=== PATIENT | female | born 1970 | race Caucasian/White ===

== ENCOUNTER → 2016-03-20 | Outpatient (CLI) | payer OTHER ==
--- NOTE | 2016-03-21 08:22 | MM ---
Reason for exam: screening (asymptomatic). Physical Findings: A clinical breast exam by your physician is recommended on an annual basis and results should be correlated with mammographic findings. MG Screening Mammo w CAD Bilateral CC and MLO view(s) were taken. No prior studies available for comparison. The breast tissue is heterogeneously dense. This may lower the sensitivity of mammography. There is no discrete abnormality. ASSESSMENT: Negative, BI-RAD 1 RECOMMENDATION: Routine screening mammogram of both breasts in 1 year.
== END | disposition home or self-care (01) ==
LOC: RADMAMWWP 03-09 08:12
PROVIDERS: ATTEND Family Medicine
DX: Z12.31 Encounter for screening mammogram for malignant neoplasm of breast (principal)

== ENCOUNTER → 2018-09-11 | Outpatient (CLI) | payer BC ==
--- NOTE | 2018-09-12 13:53 | MM ---
Reason for exam: screening (asymptomatic). Last mammogram was performed 2 years and 6 months ago. Physical Findings: A clinical breast exam by your physician is recommended on an annual basis and results should be correlated with mammographic findings. MG Screening Mammo w CAD Bilateral CC and MLO view(s) were taken. Prior study comparison: March 20, 2016, bilateral MG screening mammo w CAD. The breast tissue is heterogeneously dense. This may lower the sensitivity of mammography. No suspicious abnormality. No significant changes when compared with prior studies. ASSESSMENT: Negative, BI-RAD 1 RECOMMENDATION: Routine screening mammogram of both breasts in 1 year.
== END | disposition home or self-care (01) ==
LOC: RADMAMWWP 09:49
PROVIDERS: ATTEND Family Medicine
DX: Z12.31 Encounter for screening mammogram for malignant neoplasm of breast (principal)
CPT/HCPCS: 77067

== ENCOUNTER → 2018-09-30 | Outpatient (CLI) | payer BC ==
[2018-09-30 12:05] LABS: Anisocytosis Slight; Basophils % (A) 0 %; Eosinophils % (A) 0 %; HCT 30.6 % (34.0-46.0); HGB 9.3 gm/dL (11.4-16.0); Hypochromasia Marked; Lymphocytes # (A) 1.3 k/uL (1.0-4.8); Lymphocytes % (A) 28 %; MCH 20.3 pg (25.0-35.0); MCHC 30.4 g/dL (31.0-37.0); MCV 66.8 fL (80.0-100.0); Mean Platelet Volume 8.8; Microcytosis Marked; Monocytes # (A) 0.4 k/uL (0-1.0); Monocytes % (A) 8 %; Neutrophils # (A) 2.8 k/uL (1.3-7.7); Neutrophils % (A) 61 %; Platelet Count 226 k/uL (150-450); RBC 4.58 m/uL (3.80-5.40); RDW 16.6 % (11.5-15.5); WBC 4.6 k/uL (3.8-10.6)
== END | disposition home or self-care (01) ==
LOC: LABPAT 11:23
PROVIDERS: ATTEND Obstetrics & Gynecology Obstetrics
DX: Z01.812 Encounter for preprocedural laboratory examination (principal)
CPT/HCPCS: 36415; 85025

== ENCOUNTER 2018-10-22 06:22 | Day surgery (SDC) | payer BC ==
[2018-10-17 09:49] VITALS: BMI 30.4
--- NOTE | 2018-10-21 13:44 | P.HPOB ---
History of Present Illness H&P Date: 10/21/18 Chief Complaint: menorrhagia, uterine fibroids This is a 48yo that presents with c/o HMB. she states her menses have been worsening over the last 2 years and specifically the last 6 months. menses are regualr lasting 7-10 days, positive clots with her menses. she flows heavy for about 4 days of her menses. she did have a pelvic ultrasound revealing 5 small fibroids largest measuring 2 cm, uterus was slightly enlarged at 10 cm. Review of Systems Constitutional: Reports fatigue, Denies chills, Denies fever Ears, nose, mouth and throat: Denies headache Cardiovascular: Denies edema Respiratory: Denies dyspnea Gastrointestinal: Denies constipation, Denies diarrhea, Denies nausea, Denies vomiting Genitourinary: Reports menorrhagia Menstruation: Reports period heavy Past Medical History Additional Past Medical History / Comment(s): IRREGULAR HEAVY MENSES. SEASONAL ALLERGIES History of Any Multi-Drug Resistant Organisms: None Reported Additional Past Surgical History / Comment(s): D & C Past Anesthesia/Blood Transfusion Reactions: Postoperative Nausea & Vomiting (PONV) Smoking Status: Former smoker - Past Family History Mother Family Medical History: Deep Vein Thrombosis (DVT) Medications and Allergies Home Medications Medication Instructions Recorded Confirmed Type Desvenlafaxine Succinate [Pristiq] 50 mg PO DAILY 10/17/18 10/17/18 History Loratadine [Claritin] 10 mg PO DAILY 10/17/18 10/17/18 History Meloxicam [Mobic] 7.5 mg PO DAILY 10/17/18 10/17/18 History Montelukast [Singulair] 10 mg PO DAILY 10/17/18 10/17/18 History Allergies Allergy/AdvReac Type Severity Reaction Status Date / Time Penicillins Allergy Rash/Hives Verified 10/17/18 09:38 Exam Osteopathic Statement: *. No significant issues noted on an osteopathic structural exam other than those noted in the History and Physical/Consult. in general this is a well nourished well developed female in NAD< heart has a RRR, lungs CTA b/l. - OBG Physical Exam Abdomen: bowel sounds normal Vagina: no discharge Cervix: no lesion, no friable Uterus: enlarged, normal contour Adnexa: both: normal Anus/Rectum: normal perianal skin Assessment and Plan (1) Menorrhagia Status: Acute Code(s): N92.0 - EXCESSIVE AND FREQUENT MENSTRUATION WITH REGULAR CYCLE SNOMED Code(s): 394757142 (2) Uterine fibroid Status: Acute Code(s): D25.9 - LEIOMYOMA OF UTERUS, UNSPECIFIED SNOMED Code(s): 03304679 Plan: Plan H DC EA, procedure reviewed and all questions answered. failure of procedure reviewed and all questions answered.
[~2018-10-22 06:22] MED LIST: DEXAMETHASONE SOD PHOSPHATE 10 MG/ML 1 ML VIAL IV ONE; HYDROmorphone 0.5 MG/0.5 ML SYRINGE IVP PRN; LACTATED RINGERS 1,000 ML IV SCH; LIDOCAINE 1% 20 ML VIAL (10MG/ML) FOR IV START INTRADERMA PRN; ONDANSETRON 4 MG/2 ML VIAL IVP ONE; Pre Op ABX Message 1 EACH MISC MISCELLANE ONE; SCOPOLAMINE 1.5MG/72HR PATCH TRANSDERM ONE
[2018-10-22] MEDS ORDERED: MIDAZOLAM (PF) 2 MG/2 ML VIAL IVP ONE (06:55)
[2018-10-22] MEDS ORDERED: fentaNYL (PF) 50 MCG/ML 2 ML AMP ONE (07:37)
[2018-10-22] MEDS ORDERED: GLYCOPYRROLATE 0.2 MG/ML 2 ML VIAL ONE (07:37)
[2018-10-22] MEDS ORDERED: SUCCINYLCHOLINE CHLORIDE 100 MG/5 ML SYR IV ONE (07:37)
[2018-10-22] MEDS ORDERED: PROPOFOL 10 MG/ML 20 ML VIAL IV ONE (07:37)
[2018-10-22] MEDS ORDERED: LIDOCAINE 1% INJ 10MG/ML (20 ML MDV) ONE (07:37)
[2018-10-22] MEDS ORDERED: KETOROLAC 30 MG/ML 1 ML VIAL ONE (07:37)
--- NOTE | 2018-10-22 08:11 | P.OP ---
Date of Procedure: 10/22/18 Preoperative Diagnosis: Menorrhagia, uterine fibroids Postoperative Diagnosis: Same Procedure(s) Performed: Hysteroscopy, dilation and curettage, endometrial ablation with NovaSure Anesthesia: HARDIK Surgeon: Cristel Amaral Estimated Blood Loss (ml): 5 IV fluids (ml): 400 Urine output (ml): 50 Pathology: other (Endometrial curettings) Condition: stable Disposition: PACU Indications for Procedure: Heavy menstrual bleeding Operative Findings: Normal appearing proliferative endometrial cavity Description of Procedure: Patient seen in the preoperative area and informed consent is obtained. Risks are reviewed once again all questions are answered. Patient was taken back to the operating suite where general anesthesia was obtained without difficulty by the anesthesia department. She was then prepped and draped in normal sterile fashion in the dorsal lithotomy position. A red rubber catheter was used to drain the bladder of clear yellow urine. Weighted speculum was placed in the posterior vaginal vault the anterior lip of the cervix is visualized and grasped with a single-tooth tenaculum. The endocervical canal was then dilated and hysteroscope was placed through the cervix and toward the endometrial cavity. A proliferative cavity was noted, pictures were taken and the hysteroscope was removed. A sharp curettage was then performed and the specimen specimen was then sent to pathology for analysis. The NovaSure device was then opened and set the appropriate measurements for the patient's cavity 4 cm in length and 3.7 in width. Power of 81 was given after cavity assessment was completed the cycle was allowed to complete for 79 seconds. Afterwards the device was removed without difficulty. The single-tooth tenaculum was taken off of the anterior li p of the cervix hemostasis was appreciated. All counts were correct 2 patient tolerated procedure well and was taken the recovery room awake in stable condition.
[2018-10-22 08:28] VITALS: TEMP 97
[2018-10-22 08:34] VITALS: RESP 16
[2018-10-22] MEDS ORDERED: ACETAMINOPHEN TAB 325 MG TAB PO ONE (09:39)
[2018-10-22 09:48] VITALS: BP 122/70; PULSE 77
== END 2018-10-22 10:55 | disposition home or self-care (01) ==
LOC: OR 06:22
PROVIDERS: ATTEND Obstetrics & Gynecology Obstetrics
DX: N92.0 Excessive and frequent menstruation with regular cycle (principal); D25.9 Leiomyoma of uterus, unspecified; N85.00 Endometrial hyperplasia, unspecified; Z88.0 Allergy status to penicillin; J45.909 Unspecified asthma, uncomplicated; Z79.51 Long term (current) use of inhaled steroids; Z79.899 Other long term (current) drug therapy; K21.9 Gastro-esophageal reflux disease without esophagitis; Z87.891 Personal history of nicotine dependence; Z84.89 Family history of other specified conditions; Z79.1 Long term (current) use of non-steroidal anti-inflammatories (NSAID)
CPT/HCPCS: 81025; 88305; 58563; J1100; J2405; J2001; J3010; J1885; J0330; J2704; J2250

== ENCOUNTER 2021-06-08 15:13 | Emergency (ER) | payer BC ==
[2021-06-08 16:13] VITALS: BP 139/72; PULSE 64; RESP 18; TEMP 98.4
--- NOTE | 2021-06-08 16:36 | ED ---
General Adult HPI - General Chief complaint: Fall Stated complaint: Fall Hit Left side of Face Time Seen by Provider: 06/08/21 16:21 Source: patient Mode of arrival: ambulatory Limitations: no limitations - History of Present Illness Initial comments: Dictation was produced using [employer] dictation software. please excuse any grammatical, word or spelling errors. Chief Complaint: 51-year-old female presents emergency Department with head injury History of Present Illness: Is 51-year-old female she tripped opening her gait at around 2:30 PM today. She fell to the ground and did on her left side and hit her head on the ground. She states that she was a little dazed but denies losing consciousness. After the fall she had a slight headache however after the next several minutes her symptoms improved until 1 hour prior to arrival her symptoms started to come back. She felt a little dizzy and nauseated while in the waiting room however since she's been placed in hallway bed #10 she's been feeling slightly better. Patient denies any double vision. The ROS documented in this emergency department record has been reviewed and confirmed by me. Those systems with pertinent positive or negative responses have been documented in the HPI. All other systems are other negative and/or noncontributory. PHYSICAL EXAM: General Impression: Alert and oriented x3, not in acute distress HEENT: Ecchymoses over the lateral superior left orbit, extra-ocular movements intact, pupils equal and reactive to light bilaterally, mucous membranes moist. Cardiovascular: Heart regular rate and rhythm Chest: Able to complete full sentences, no retractions, no tachypnea Abdomen: abdomen soft, non-tender, non-distended, no organomegaly Musculoskeletal: Pulses present and equal in all extremities, no peripheral edema Motor: no focal deficits noted Neurological: CN II-XII grossly intact, no focal motor or sensory deficits noted Skin: Abrasion over the left anterior knee Psych: Normal affect and mood ED course: 60-year-old female presents after head injury. Vital signs upon arrival are within acceptable limits. Computed tomography scan of the brain and face shows fluid levels in the maxillary sinus consistent with sinusitis but no fracture. Sinusitis seems to be minimal and bilateral, not likely an indirect sign of orbital fracture. Patient was or the emergency department for approximately 2 hours and 40 minutes. She is reevaluated bedside 5:55 PM found to be stable medical condition. Patient be discharged. She is told that her symptoms may reflect a mild concussion. She is told to avoid any extremes activity to follow-up with her primary care doctor. - Related Data Home Medications Medication Instructions Recorded Confirmed Loratadine [Claritin] 10 mg PO HS 10/17/18 06/08/21 Montelukast [Singulair] 10 mg PO HS 10/17/18 06/08/21 Meloxicam [Mobic] 15 mg PO DAILY PRN 06/08/21 06/08/21 Venlafaxine HCl ER [Effexor Xr] 37.5 mg PO HS 06/08/21 06/08/21 Allergies Allergy/AdvReac Type Severity Reaction Status Date / Time Penicillins Allergy Rash/Hives Verified 06/08/21 17:42 on entire body Review of Systems ROS Statement: Those systems with pertinent positive or pertinent negative responses have been documented in the HPI. ROS Other: All systems not noted in ROS Statement are negative. Past Medical History Past Medical History: Asthma History of Any Multi-Drug Resistant Organisms: None Reported Past Psychological History: Depression Smoking Status: Never smoker Past Alcohol Use History: Rare Past Drug Use History: None Reported General Exam Limitations: no limitations Course Vital Signs 06/08/21 16:08 Temperature 98.4 F Pulse Rate 64 Respiratory 18 Rate Blood Pressure 139/72 O2 Sat by Pulse 97 Oximetry Disposition Clinical Impression: Facial contusion Disposition: HOME SELF-CARE Condition: Good Instructions (If sedation given, give patient instructions): Fall Prevention for Older Adults (ED) Is patient prescribed a controlled substance at d/c from ED?: No Referrals: Gamal Rose MD [Primary Care Provider] - 1-2 days
--- NOTE | 2021-06-08 17:41 | CT ---
EXAMINATION TYPE: CT brain wo con DATE OF EXAM: 06/08/2021 COMPARISON: None HISTORY: Fall, left periorbital swelling. CT DLP: 721.5 mGycm Automated exposure control for dose reduction was used. Images obtained of the brain without contrast. Ventricles have normal size. There is no mass effect or midline shift. There is no sign of intracrani al hemorrhage. There is mucosal thickening and fluid levels in the maxillary sinuses. IMPRESSION: Maxillary sinusitis with fluid levels. No acute intracranial abnormality.
--- NOTE | 2021-06-08 17:44 | CT ---
EXAMINATION TYPE: CT facial bones wo con DATE OF EXAM: 06/08/2021 COMPARISON: None HISTORY: Fall, left periorbital swelling. CT DLP: 721.5 mGycm Automated exposure control for dose reduction was used. Images of the facial bones obtained from the bottom of the mandible to the top of the frontal sinuses with no contrast. The mandibular ring is intact. Temporomandibular joints are intact. Zygomatic arches appear normal. T he maxilla is intact. There is fluid levels in the maxillary sinuses. Nasal bone is intact. Orbital m argins are intact no evidence of orbital blowout fracture. No retro-orbital mass. There is mild soft tissue swelling lateral to the left orbit. IMPRESSION: Mild left lateral periorbital soft tissue swelling. No fracture. Fluid levels in the maxillary sinuse s consistent with sinusitis. No fracture.
== END 2021-06-08 18:15 | disposition home or self-care (01) ==
LOC: EC 15:13
DX: S00.12XA Contusion of left eyelid and periocular area, initial encounter (principal); S80.212A Abrasion, left knee, initial encounter; J45.909 Unspecified asthma, uncomplicated; Z88.0 Allergy status to penicillin; W01.198A Fall on same level from slipping, tripping and stumbling with subsequent striking against other object, initial encounter; Y92.009 Unspecified place in unspecified non-institutional (private) residence as the place of occurrence of the external cause
CPT/HCPCS: 70450; 70486; 99284

== ENCOUNTER → 2022-02-28 | Outpatient (CLI) | payer BC ==
--- NOTE | 2022-02-28 11:00 | XR ---
EXAMINATION TYPE: XR chest 2V DATE OF EXAM: 02/28/2022 COMPARISON: NONE TECHNIQUE: PA and lateral views submitted. HISTORY: Cough FINDINGS: The lungs are clear and there is no pneumothorax, pleural effusion, or focal pneumonia. Heart size normal and no overt failure. Osseous structures demonstrate hypertrophic and degenerative changes of the spine. Hyperinflation of the lungs. IMPRESSION: 1. No acute process. Correlate for COPD or asthma.
== END | disposition home or self-care (01) ==
LOC: RADXRMAIN 09:40
PROVIDERS: ATTEND Family Medicine
DX: J20.9 Acute bronchitis, unspecified (principal)
CPT/HCPCS: 71046